=== PATIENT | male | born 1940 | race Caucasian/White ===

== ENCOUNTER 2017-10-13 08:37 | Outpatient (CLI) | payer BC ==
[2017-10-13 09:12] LABS: HEMATOCRIT 41.8 % (39.0-53.0); HEMOGLOBIN 14.3 g/dL (13.0-17.5); MEAN CORPUSCULAR HEMOGLOBIN 31 pg (25-35); MEAN CORPUSCULAR HGB CONC 34 g/dL (31-37); MEAN CORPUSCULAR VOLUME 91 fL (79-100); PLATELET COUNT 228 x10^3/uL (140-400); RED BLOOD COUNT 4.59 x10^6/uL (4.30-5.70); RED CELL DISTRIBUTION WIDTH 13.2 % (11.5-14.5); WHITE BLOOD COUNT 7.6 x10^3/uL (4.0-11.0)
[2017-10-13 09:18] LABS: PROTHROMBIN TIME PATIENT 12.7 SEC (11.7-14.0)
[2017-10-13 09:23] LABS: ANION GAP 10 (6-14); BLOOD UREA NITROGEN 31 mg/dL (8-26); CALCIUM 9.6 mg/dL (8.5-10.1); CARBON DIOXIDE 25 mmol/L (21-32); CHLORIDE 101 mmol/L (98-107); CREATININE 1.1 mg/dL (0.7-1.3); GFR 65.1; GLUCOSE 166 mg/dL (70-99); POTASSIUM 4.4 mmol/L (3.5-5.1); SODIUM 136 mmol/L (136-145)
[2017-10-13] MEDS ORDERED: LIDOCAINE 2% 20 ML VIAL. (09:57)
[2017-10-13] MEDS ORDERED: IOHEXOL 300 MG/ML 100ML VIAL. (09:57)
[2017-10-13] MEDS ORDERED: MIDAZOLAM HCL/PF 2 MG/2 ML VIAL. (11:36)
[2017-10-13] MEDS ORDERED: HEPARIN for IV BOLUS 10,000 UNIT/10 ML VIAL. (11:36)
[2017-10-13] MEDS ORDERED: fentaNYL PF VIAL 100 MCG/2 ML VIAL (11:36)
[2017-10-13] MEDS ORDERED: VERAPAMIL 5 MG/2 ML VIAL. (11:36)
[2017-10-13] MEDS ORDERED: NITROGLYCERIN 200 MCG/2 ML SYRINGE FOR CATH/VASC LAB. (11:36)
[2017-10-13] MEDS: NITROGLYCERIN 200 MCG/2 ML SYRINGE FOR CATH/VASC LAB. IART (12:24)
[2017-10-13] MEDS: IODIXANOL 320 MG/ML 100 ML VIAL. IART (12:24)
[2017-10-13] MEDS: LIDOCAINE 2% 20 ML VIAL. IJ (12:24)
[2017-10-13] MEDS: fentaNYL PF VIAL 100 MCG/2 ML VIAL IV (12:25)
[2017-10-13] MEDS: MIDAZOLAM HCL/PF 2 MG/2 ML VIAL. IV (12:25)
[2017-10-13] MEDS: VERAPAMIL 5 MG/2 ML VIAL. IART (12:25)
[2017-10-13] MEDS: HEPARIN for IV BOLUS 10,000 UNIT/10 ML VIAL. IART (12:26)
[2017-10-13] MEDS ORDERED: IV 1/2 NORMAL SALINE 1,000 ML IV (13:06)
[2017-10-13] MEDS ORDERED: NITROGLYCERIN SUBLINGUAL 0.4 MG BOTTLE OF 25. SL (13:15)
== END 2017-10-13 14:45 | disposition home or self-care (01) ==
LOC: CCL 08:37
DX: I25.119 Atherosclerotic heart disease of native coronary artery with unspecified angina pectoris (principal); I25.82 Chronic total occlusion of coronary artery; E11.22 Type 2 diabetes mellitus with diabetic chronic kidney disease; I13.10 Hypertensive heart and chronic kidney disease without heart failure, with stage 1 through stage 4 chronic kidney disease, or unspecified chronic kidney disease; N18.3 Chronic kidney disease, stage 3 (moderate); I44.1 Atrioventricular block, second degree; F41.9 Anxiety disorder, unspecified; E03.9 Hypothyroidism, unspecified; E78.00 Pure hypercholesterolemia, unspecified; F17.210 Nicotine dependence, cigarettes, uncomplicated; M19.90 Unspecified osteoarthritis, unspecified site; E66.9 Obesity, unspecified; Z68.35 Body mass index [BMI] 35.0-35.9, adult; Z90.49 Acquired absence of other specified parts of digestive tract; Z79.82 Long term (current) use of aspirin; Z79.01 Long term (current) use of anticoagulants; Z79.899 Other long term (current) drug therapy; Z87.891 Personal history of nicotine dependence
CPT/HCPCS: 36415; 80048; 85027; 85610; 93458; 99152; 99153; C1892; J1644; J2001; J2250; J3010; J3490

== ENCOUNTER → 2018-11-16 | Outpatient (CLI) | payer BC ==
[2017-10-13 14:12] VITALS: BP 145/85
[~2018-11-16] MED LIST: AMLO10TA8 PO; ASPI-630 PO; ATORVASTATIN CA80 MG PO; CHOL10003 PO; GLIM4TAB2 PO; INSU100I13 SQ; LEVO75TA5 PO; LISI-334 PO; METF500T16 PO; NIAC500T PO; OMEG1CAP6 PO; PRAV80TA2 PO; SITA100T PO
--- NOTE | 2018-11-16 11:49 | CARD ---
MR#: [id number] Date of Study: 11/16/2018 Ordering Physician: DEMI HERBERT, Referring Physician: DEMI HERBERT Tech: Shanice Cunningham RDCS APPROVED REPORT EXAM: Two-dimensional and M-mode echocardiogram with Doppler and color Doppler. Other Information Quality : AverageHR: 79bpm Rhythm : Pacemaker INDICATION CAD 2D DIMENSIONS RVDd4.1 (2.9-3.5cm)Left Atrium(2D)3.1 (1.6-4.0cm) IVSd1.3 (0.7-1.1cm)Aortic Root(2D)2.9 (2.0-3.7cm) LVDd3.6 (3.9-5.9cm)LVOT Diameter2.1 (1.8-2.4cm) PWd1.1 (0.7-1.1cm)LVDs2.0 (2.5-4.0cm) FS (%) 44.6 %SV41.7 ml LVEF(%)76.7 (>50%) M-Mode DIMENSIONS Left Atrium(MM)4.02 (2.5-4.0cm)Aortic Root3.17 (2.2-3.7cm) Aortic Valve AoV Peak Osbaldo.159.2cm/sAoV VTI38.7cm AO Peak GR.10.1mmHgLVOT Peak Osbaldo.85.0cm/s AO Mean GR.6mmHgAVA (VMAX)1.79cm2 SUPA (VTI)1.94hz0AP P 1/2 Rczl368to Mitral Valve MV E Qyloodvl92.9cm/sMV DECEL VUYR050am MV A Hnipqdka996.9cm/sE/A Ratio0.6 Pulmonary Valve PV Peak Jrqlmqrz838.0cm/s Tricuspid Valve TR P. Qhubgulw822uf/sRAP ARYKSZUB4bgFo TR Peak Gr.49kwNrWRXD35ufFe LEFT VENTRICLE The left ventricle is normal size. There is mild concentric left ventricular hypertrophy. The left ve ntricular systolic function is normal. The Ejection Fraction is 65%. Apical motion consistent with pa cemaker activation. Transmitral Doppler flow pattern is Grade I-abnormal relaxation pattern. RIGHT VENTRICLE The right ventricle is mildly dilated. There is normal right ventricular wall thickness. The right ve ntricular systolic function is normal. Pacer lead noted in RV/RA. ATRIA The left atrium is mildly dilated. The right atrium size is normal. The interatrial septum is intact with no evidence for an atrial septal defect or patent foramen ovale as noted on 2-D or Doppler imagi ng. AORTIC VALVE The aortic valve is mildly calcified. The aortic valve is trileaflet. Doppler and Color Flow revealed no significant aortic regurgitation. There is no significant aortic valvular stenosis. MITRAL VALVE The mitral valve is calcified but opens well. There is no evidence of mitral valve prolapse. There is no mitral valve stenosis. Doppler and Color-flow revealed mild mitral regurgitation. TRICUSPID VALVE The tricuspid valve is normal in structure and function. Doppler and Color Flow revealed trace tricus pid regurgitation. The PA pressure was estimated at 34 mmHg. There is no tricuspid valve prolapse or vegetation. There is no tricuspid valve stenosis. PULMONIC VALVE The pulmonic valve is not well visualized. GREAT VESSELS The aortic root is normal in size. The ascending aorta is normal in size. The IVC is normal in size a nd collapses >50% with inspiration. PERICARDIAL EFFUSION There is no evidence of significant pericardial effusion. Critical Notification Critical Value: No <Conclusion> The left ventricular systolic function is normal. The Ejection Fraction is 65%. Transmitral Doppler flow pattern is Grade I-abnormal relaxation pattern. Pacer lead noted in RV/RA. Mild mitral regurgitation. Trace tricuspid regurgitation. The PA pressure was estimated at 34 mmHg. There is no evidence of significant pericardial effusion. Signed by : Demi Herbert, Electronically Approved : 11/16/2018 11:49:13
== END | disposition home or self-care (01) ==
LOC: ECHO 07:39
PROVIDERS: ATTEND Internal Medicine Cardiovascular Disease
DX: I08.0 Rheumatic disorders of both mitral and aortic valves (principal); I25.119 Atherosclerotic heart disease of native coronary artery with unspecified angina pectoris
CPT/HCPCS: 93306

== ENCOUNTER → 2019-01-07 | Outpatient (CLI) | payer BC ==
[2017-10-13 14:12] VITALS: BP 145/85
[~2019-01-07] MED LIST changes: +REGADENOSON 0.4 MG/5 ML DISP.SYRIN. IV ONE
--- NOTE | 2019-01-07 10:17 | RAD ---
MR#: [id number] Date of Study: 01/07/2019 Ordering Physician: DEMI RICKETTS, Referring Physician: DEMI RCIKETTS Tech: Miriam Villegas RVT,MALGORZATA APPROVED REPORT Patient Location: OUT-PATIENT Indications Claudication: Leg pain Risk Factors Hypertension Diabetes Smoking VELOCITY AND DOPPLER WAVEFORM ANALYSIS RIGHT cm/secWaveformSeverity LEFT cm/secWaveform Severity pCFA 168.9TriphasicpCFA 177.4Triphasic Prof Fem Art. 100.6BiphasicProf Fem Art. 60.3Biphasic Fem Art Prox. 111.1TriphasicFem Art Prox. 81.7Triphasic Fem Art Mid. 82.9BiphasicFem Art Mid. 95.1Biphasic Fem Art Dist. 100.0BiphasicFem Art Dist. 126.4Triphasic Pop Art(Fossa) 88.2TriphasicPop Art(AK) 75.8Triphasic DIET SUPERVISOR Prox. 51.8BiphasicPTA Prox. 57.3Biphasic DIET SUPERVISOR Dist. 28.5BiphasicPTA Dist. 93.2Biphasic Per Art Dist.92.5BiphasicPer Art Dist.72.0Biphasic MARY Dist. 38.8BiphasicATA Dist. 88.2Biphasic DPA 42TriphasicDPA 74Triphasic Findings Grayscale images of the bilateral lower extremity arterial vessels reveal mild diffuse plaque. Spectral waveforms and color Doppler in the common femoral, superficial femoral, popliteal vessels bi laterally are within normal limits. Below the knee there is likely moderate diffuse disease involving the distal posterior tibial and anterior tibial vessels on the right. Otherwise there is robust thre e-vessel runoff on the left. Critical Notification Critical Value: No <Conclusion> 1. No significant high-grade flow-limiting stenosis is identified above the knee. Probable moderate d isease involving the right below-knee vessels but no significant disease in the left below-knee vesse ls Signed by : Peter Pacheco, Electronically Approved : 01/07/2019 10:17:23
--- NOTE | 2019-01-07 11:51 | RAD ---
MR#: [id number] Date of Study: 01/07/2019 Ordering Physician: DEMI RICKETTS Referring Physician: GEETHA JIMENEZ Tech: RT Ramu Benjamin) (N) APPROVED REPORT Test Type: Pharmacological Stress Nurse/Tech: RT Cassidy (R) (N) Test Indications: Dyspnea on exertion Cardiac History: Hypertension, Diabetes, Pacemaker, former smoker Medications: See Electronic Medical Record Medical History: See Electronic Medical Record Resting ECG: AV Paced Resting Heart Rate: 76 bpm Resting Blood Pressure: 144/73mmHg Pretest Chest Pain: No chest pain Nurse/Tech Notes S1,S2 and lungs clear to auscultation. Room air oxygen sats=98% Consent: The procedure was explained to the patient in lay terms. Informed consent was witnessed. Satish eout was entered into [employer]. History and Stress Test performed by RT Cassidy (R) (N) Pharm. Details Pharmacologic stress testing was performed using 0.4mg per 5ml of regadenoson given intravenously ove r 7-10 seconds. Stress Symptoms No chest pain or symptoms. POST EXERCISE Reason for Termination: Infusion complete Target HR: Yes Max HR: 148 bpm Max Blood Pressure: 143/50mmHg Blood Pressure response to exercise: Normal blood pressure response during stress. Heart Rate response to exercise: WNL Chest Pain: No. Arrhythmia: No. ST Change: No. INTERPRETATION Stress EKG Conclusion: Non-diagnostic due to pacing artifact. Imaging Protocol IMAGE PROTOCOL: Rest Tc-99m/stress Tc-99m 1 day Rest: Stress: Viability: Radiopharm.Tc99m FrfjdsffeYh67h Sestamibi Dose10.6mCi 33mCi Duration 13min. 13min. Img Date 01/07/2019 01/07/2019 Inj-Img Djxt94ykj. 60min. Rest Admin Site:IV - Right HandAdministrator:RT Ramu Hobson)(N) Stress Admin Site: IV - Right HandAdministrator: EBONIE Fernandez STRESS DATA End Diast. Vol.115.0mlLVEDV index BSA55.0ml End Syst. Vol.54.0mlLVESV index BSA26.0ml Myocardial Xxfl258.0gEject. Gdmqoziu05.0% Stress Scores Regional WT1.00Summed WT29.00 Regional WM0.00Summed WM11.00 LV Perfusion There is a large size basal to distal inferior, basal inferoseptal and basal inferolateral essentiall y fixed defect which actually appears worse on rest images that on stress images. This may be related to partial redistribution artifact versus pacing artifact. Based on near normal LV function suspect this is artifactual in nature but cannot rule out prior infarct. LV Perf. Quant 17 Seg. SSS8.00 17 Seg. SRS14.00 17 Seg. SDS0.00 Stress Defect Extent (% LAD)17.50Rest Defect Extent (% LAD)33.80Rev. Defect Extent (% LAD)0.00 Stress Defect Extent (% LCX) 0.00Rest Defect Extent (% LCX)10.00Rev. Defect Extent (% LCX)0.00 Stress Defect Extent (% RCA)25.60Rest Defect Extent (% RCA)50.00Rev. Defect Extent (% RCA)0.00 Stress Defect Extent (% KALEIGH)17.80Rest Defect Extent (% KALEIGH)36.50Rev. Defect Extent (% KALEIGH)0.00 Other Information Quality:Fair Risk Assessment: Low-Moderate Risk Conclusion 1. Nondiagnostic EKG due to pacing artifact 2. Moderate to large sized fixed inferior wall defect, actually worse on rest images suggestive of ar tifact versus rest redistribution 3. Mild LV dysfunction, EF 53% 4. Low to moderate risk study. Signed by : Peter Pacheco, Electronically Approved : 01/07/2019 11:51:11
== END | disposition home or self-care (01) ==
LOC: NM 10:34
PROVIDERS: ATTEND Internal Medicine Cardiovascular Disease
DX: I25.119 Atherosclerotic heart disease of native coronary artery with unspecified angina pectoris (principal); I70.203 Unspecified atherosclerosis of native arteries of extremities, bilateral legs; I10 Essential (primary) hypertension; E11.9 Type 2 diabetes mellitus without complications; Z87.891 Personal history of nicotine dependence; Z95.0 Presence of cardiac pacemaker
CPT/HCPCS: 78452; 93017; 93925; A9500; J2785

== ENCOUNTER → 2019-12-21 | Outpatient (CLI) | payer BC ==
[2017-10-13 14:12] VITALS: BP 145/85
[~2019-12-21] MED LIST changes: -GLIM4TAB2 PO; +GLIM4TAB8 PO; +INSU300I SQ; +LISI-130 PO; +NITR0.4T22 SL; -REGADENOSON 0.4 MG/5 ML DISP.SYRIN. IV ONE; +TAMS0.4C97 PO
--- NOTE | 2019-12-21 14:19 | CARD ---
MR#: [id number] Date of Study: 12/21/2019 Ordering Physician: DEMI RICKETTS, Referring Physician: DEMI RICKETTS Tech: Marizol Blanc RDCS APPROVED REPORT EXAM: Two-dimensional and M-mode echocardiogram with Doppler and color Doppler. Other Information Quality : Good INDICATION Cardiac Disease: CAD PM/DEFIBRILLATOR 2D DIMENSIONS RVDd4.0 (2.9-3.5cm)Left Atrium(2D)3.0 (1.6-4.0cm) IVSd1.1 (0.7-1.1cm)Aortic Root(2D)3.0 (2.0-3.7cm) LVDd4.7 (3.9-5.9cm)LVOT Diameter2.3 (1.8-2.4cm) PWd1.1 (0.7-1.1cm)LVDs3.5 (2.5-4.0cm) FS (%) 30.0 %SV49.5 ml Aortic Valve AoV Peak Osbaldo.137.8cm/sAoV VTI24.2cm AO Peak GR.7.6mmHgLVOT Peak Osbaldo.106.7cm/s AO Mean GR.5mmHgAVA (VMAX)3.12cm2 SUPA (VTI)3.17qk6PO P 1/2 Oqul883zl Mitral Valve MV E Gwpvozhx42.2cm/sMV DECEL UJQE510th MV A Vlnsbyvd098.3cm/sE/A Ratio0.6 Tricuspid Valve TR P. Yefzfhtt456ra/sRAP WEIVQHDD4ymHl TR Peak Gr.57frMpKRAG94mdRm Pulmonary Vein S1 Yphflpuv75.6cm/sD2 Hlhoyyrl74.4cm/s LEFT VENTRICLE The left ventricle is normal size. There is normal left ventricular wall thickness. The left ventricu lar systolic function is low normal. The Ejection Fraction is estimated at 50%. Apical motion consist ent with pacemaker activation. Transmitral Doppler flow pattern is Grade I-abnormal relaxation patter n. RIGHT VENTRICLE The right ventricle is normal size. The right ventricular systolic function is normal. There are adam ce leads in the right ventricle and atrium. ATRIA The left atrium size is normal. The right atrium size is normal. The interatrial septum is intact wit h no evidence for an atrial septal defect or patent foramen ovale as noted on 2-D or Doppler imaging. AORTIC VALVE The aortic valve is calcified but opens well. Doppler and Color Flow revealed mild aortic regurgitati on. There is no significant aortic valvular stenosis. MITRAL VALVE The mitral valve is normal in structure and function. There is no evidence of mitral valve prolapse. There is no mitral valve stenosis. Doppler and Color-flow revealed trace mitral regurgitation. TRICUSPID VALVE The tricuspid valve is normal in structure and function. Doppler and Color Flow revealed trace tricus pid regurgitation. The PA pressure was estimated at 28 mmHg. There is no tricuspid valve stenosis. PULMONIC VALVE The pulmonary valve is normal in structure and function. Doppler and Color Flow revealed mild pulmoni c valvular regurgitation. There is no pulmonic valvular stenosis. GREAT VESSELS The aortic root is normal in size. The ascending aorta is mildly dilated t 3.5 cm. The IVC is normal in size and collapses >50% with inspiration. PERICARDIAL EFFUSION There is no evidence of significant pericardial effusion. Critical Notification Critical Value: No <Conclusion> The left ventricle is normal size. The left ventricular systolic function is low normal. The Ejection Fraction is estimated at 50%. Apical motion consistent with pacemaker activation. There are device leads in the right ventricle and atrium. Doppler and Color Flow revealed mild aortic regurgitation. There is no significant aortic valvular stenosis. Doppler and Color-flow revealed trace mitral regurgitation. Doppler and Color Flow revealed trace tricuspid regurgitation. The PA pressure was estimated at 28 mmHg. The ascending aorta is mildly dilated t 3.5 cm. Signed by : Spike Knott MD Electronically Approved : 12/21/2019 14:19:07
== END | disposition home or self-care (01) ==
LOC: ECHO 07:37
PROVIDERS: ATTEND Internal Medicine Cardiovascular Disease
DX: I08.8 Other rheumatic multiple valve diseases (principal); I25.119 Atherosclerotic heart disease of native coronary artery with unspecified angina pectoris; Z95.0 Presence of cardiac pacemaker
CPT/HCPCS: 93306

== ENCOUNTER → 2019-12-29 | Outpatient (CLI) | payer BC ==
[2017-10-13 14:12] VITALS: BP 145/85
[~2019-12-29] MED LIST changes: -INSU300I SQ; -LISI-130 PO; -NITR0.4T22 SL; -TAMS0.4C97 PO
== END ==
LOC: LAB 13:56
PROVIDERS: ATTEND Internal Medicine Cardiovascular Disease
DX: Z20.828 Contact with and (suspected) exposure to other viral communicable diseases (principal)
CPT/HCPCS: U0003-CS

== ENCOUNTER 2020-01-03 06:47 | Outpatient (CLI) | payer BC ==
[2020-01-03] VITALS (10 sets, daily range): BP systolic 114–151; BP diastolic 60–75
[~2020-01-03] VITALS: Ht 170.2 cm; Wt 97.5 kg
[2020-01-03] MEDS ORDERED: INSU300I SQ (07:27)
[2020-01-03] MEDS ORDERED: GLIM4TAB8 PO (07:27)
[2020-01-03] MEDS ORDERED: LISI-130 PO (07:27)
[2020-01-03 07:29] LABS: HEMATOCRIT 41.1 % (39.0-53.0); HEMOGLOBIN 13.9 g/dL (13.0-17.5); RED BLOOD COUNT 4.46 x10^6/uL (4.30-5.70); RED CELL DISTRIBUTION WIDTH 13.5 % (11.5-14.5); WHITE BLOOD COUNT 7.8 x10^3/uL (4.0-11.0)
[2020-01-03] MEDS ORDERED: IODIXANOL 320 MG/ML 100 ML VIAL. ONE ×2 (07:38→09:26)
[2020-01-03] MEDS ORDERED: LIDOCAINE 1% Multi-Dose 20 ML VIAL. ONE (07:39)
[2020-01-03 07:41] LABS: CALCIUM 9.4 mg/dL (8.5-10.1); CREATININE 1.1 mg/dL (0.7-1.3); GFR 64.7; POTASSIUM 4.4 mmol/L (3.5-5.1)
[2020-01-03 07:43] LABS: PROTHROMBIN TIME PATIENT 12.6 SEC (11.7-14.0)
[2020-01-03] MEDS ORDERED: fentaNYL PF VIAL 100 MCG/2 ML VIAL ONE (08:05)
[2020-01-03] MEDS ORDERED: MIDAZOLAM HCL/PF 2 MG/2 ML VIAL. ONE ×2 (08:05→09:02)
[2020-01-03] MEDS ORDERED: TAMS0.4C97 PO (08:09)
[2020-01-03] MEDS ORDERED: fentaNYL PF VIAL 100 MCG/2 ML VIAL IV ONE (08:15)
[2020-01-03] MEDS ORDERED: IODIXANOL 320 MG/ML 100 ML VIAL. IART ONE (08:15)
[2020-01-03] MEDS ORDERED: LIDOCAINE 1% Multi-Dose 20 ML VIAL. INJ ONE (08:15)
[2020-01-03] MEDS ORDERED: MIDAZOLAM HCL/PF 2 MG/2 ML VIAL. IV ONE (08:15)
[2020-01-03] MEDS ORDERED: HEPARIN for IV BOLUS 10,000 UNIT/10 ML VIAL. ONE (09:21)
[2020-01-03] MEDS ORDERED: HEPARIN for IV BOLUS 10,000 UNIT/10 ML VIAL. IV ONE (09:30)
[2020-01-03] MEDS ORDERED: IV 1/2 NORMAL SALINE 1,000 ML IV SCH (10:00)
--- NOTE | 2020-01-03 10:00 | PDOC ---
MODERATE SEDATION ASSESSMENT RISKS/ALTERNATIVES Risks/Alternatives Risks and alternatives of this type of sedation and procedure discussed with: RISK/ALTERNATIVES: Patient H & P ON CHART H & P H & P on chart and reviewed for co-morbid conditions and appropriate labs. H&P ON CHART: Yes STATUS PREG STATUS ASSESSED: N/A MEDS/ALLERGIES REVIEWED Meds/Allergies Reviewed Medications and Allergies including time and route of recently administered narcotics and sedatives. MEDS/ALLERGIES REVIEWED: Yes ASA RATING ASA RATING: II AIRWAY ASSESSMENT Airway Assessment Airway patency, oral function limitations, presence of caps, crowns, dentures, partials, and ability to extend neck assessed. AIRWAY ASSESSMENT: Yes MALLAMPATI SCORE MALLAMPATI SCORE: II PRE-SEDATION ASSESSMENT PRE-SEDATION ASSESSMENT: Yes DEMI RICKETTS MD Jan 03, 2020 10:00
[2020-01-03] MEDS ORDERED: NITR0.4T22 SL (11:57)
--- NOTE | 2020-01-03 12:14 | CARD ---
MR#: [id number] Date of Study: 01/03/2020 Ordering Physician: DEMI RICKETTS, Referring Physician: DEMI RICKETTS Tech: MARK ROBERTSON RTR APPROVED REPORT Technologist: MARK ROBERTSON RTR Nurse: SHELLEY DAY RN Procedure(s) performed: 1. Right and left heart catheterization, selective coronary angiography and left ventriculography 2. Coronary intravascular ultrasound (IVUS) of left main coronary artery stenosis MODERATE SEDATION TIME: 90 minutes FLUORO TIME: 14.2 MIN DOSE: 113 GYCM2 CONTRAST: 185CC VISI INDICATION The indication(s) include : unstable angina . CSHA Clinical Frailty Scale CS Clinical Frailty Scale: Mildly Frail Heart Failure Heart Failure: No PROCEDURE NARRATIVE After explaining the risks, benefits and alternative options, informed consent was obtained for patie nt. Patient was brought to the cardiac Human Resource Manager and his right groin was prepped and draped in the us ual fashion. 20 cc of 2% lidocaine was infiltrated into the skin and subcutaneous tissues for local anesthesia. Arterial and venous accesses were obtained in the right common femoral artery and vein r espectively and 6 and 5 Indonesian sheaths inserted. A 5 Indonesian Naoma-Arianna catheter was then advanced und er fluoroscopy guidance and intracardiac pressures and oxygen saturations measured. Cardiac output w as determined by Shan method. Subsequently, 6 Indonesian JL4 6 Indonesian JR4 catheters were used to perform selective angiography of the left and right coronary arteries. 6 Indonesian pigtail catheter was used t o perform left ventriculography. Since patient had angiographically borderline significant stenosis involving the left main coronary artery, we decided to evaluate this further with coronary intravascu lar ultrasound. The left main coronary artery was engaged with a 6 Indonesian JL4 guide catheter and a 0 .014 inch Handango pro-water guidewire was advanced into the left circumflex artery. A IZI-collecte coronary intravascular ultrasound was positioned in the left circumflex artery and pulled back gradually whil e performing coronary intravascular ultrasound. Patient tolerated the procedure well. Hemostasis wa s achieved using manual compression due to high bifurcation. There were no immediate complications. FINDINGS A. RIGHT HEART CATHETERIZATION 1. Intracardiac pressures: Mean right atrial pressure 12 mmHg, right ventricular pressure 35/12 mmHg , pulmonary artery pressure 34/16 mmHg with mean PA pressure 23 mmHg and mean pulmonary capillary wed ge pressure 14 mmHg. This is consistent with mildly elevated right-sided filling pressures. No sign ificant pulmonary hypertension was noted. 2. Oxygen saturations: Right atrium 65.6%, pulmonary artery 66.5%, femoral arterial sheath 98.9%. N o evidence of intracardiac shunt. 3. Cardiac output by Shan method 3.84 L/min. B. LEFT HEART CATHETERIZATION 1. Hemodynamics: Left ventricular end-diastolic pressure 25 mmHg. No pullback gradient across the a ortic valve. 2. Left ventriculography: Normal left ventricular systolic function with ejection fraction estimated at 50 to 55%. No significant mitral regurgitation seen. 3. Coronary angiography: a. The left main coronary artery arose from the left sinus of Valsalva, gave rise to the left anteri or descending and left circumflex arteries and showed 60% stenosis involving the ostium of the left m ain coronary artery angiographically. This was found to be 71% on coronary intravascular ultrasound. b. The left anterior descending artery showed 50% stenosis in the proximal segment. c. The left circumflex artery was a large and dominant vessel that showed 30% stenosis in the proxim al segment. d. The right coronary artery was a nondominant vessel arising from the right sinus of Valsalva that showed chronic total occlusion in the proximal to mid segment with faint distal reconstitution from l eft to right collaterals. This was described in prior cardiac catheterization. Conclusion 1. Left dominant system with significant left main coronary artery stenosis, 60% ostial stenosis ang iographically and 71% stenosis on IVUS. 2. Normal left ventricle systolic function with ejection fraction estimated at 50 to 55%. 3. No significant pulmonary hypertension. 4. No evidence of intracardiac shunt. Recommendations Cardiothoracic surgery referral for possible coronary bypass surgery. Signed by : Demi Ricketts, Electronically Approved : 01/03/2020 12:14:44
--- NOTE | 2020-01-03 13:59 | NUR ---
pt A&O x3. rt groin site is clean and dry. discussed and reviewed pictures of coronary arteries and where he has blockage and why that is significant. tolerating po well. ambulated to Br w/o problem. VSS. d/c instructions given, reminder to hold metformin for 48 hours and questions answered. out to vehicle per w/c. to drive pt home.
== END 2020-01-03 13:45 | disposition home or self-care (01) ==
LOC: CCL 06:47
PROVIDERS: ATTEND Internal Medicine Cardiovascular Disease
DX: I25.110 Atherosclerotic heart disease of native coronary artery with unstable angina pectoris (principal); Z87.891 Personal history of nicotine dependence; Z72.89 Other problems related to lifestyle; Z79.899 Other long term (current) drug therapy
CPT/HCPCS: 36415; 80048; 85027; 85610; 92978; 92979; 93460; 99152; 99153; C1753; C1769; C1887; C1892; J1644; J2250; J3010; J3490; Q9967; 37252

== ENCOUNTER → 2020-01-23 | Outpatient (CLI) | payer BC ==
[2020-01-03 13:20] VITALS: BP 140/71
[~2020-01-23] MED LIST changes: +INSU300I SQ; +LISI-130 PO; +NITR0.4T22 SL; +TAMS0.4C97 PO
--- NOTE | 2020-01-23 12:20 | RAD ---
MR#: [id number] Date of Study: 01/23/2020 Ordering Physician: DEMI RICKETTS, Referring Physician: DEMI RICKETTS, Tech: Davidson Ramirez MBA, RDMS, RVT, RDCS, RTR APPROVED REPORT Patient Location: OUT-PATIENT Laterality:Bilateral Indications PRE-OP CABG Doppler Spectral Velocity Analysis Right Left pCCA 111/13 cm/spCCA 156/20 cm/s mCCA 95/18 cm/smCCA 90/15 cm/s dCCA 85/16 cm/sdCCA 101/19 cm/s Bulb 70/12 cm/sBulb 79/14 cm/s ECA 190/ cm/sECA 113/ cm/s pICA 83/20 cm/spICA 94/18 cm/s Meg 76/20 cm/smICA 68/16 cm/s dICA 76/21 cm/sdICA 69/20 cm/s Vert. 43/ cm/sVert. 44/ cm/s Subcl. 121/ cm/sSubcl. 177/ cm/s ICA/CCA 0.75ICA/CCA 0.60 Findings Grayscale images of the bilateral carotid vessels demonstrates mild to moderate atherosclerosis. No focal high-grade obstruction based on velocity criteria is evident in the bilateral internal carotid vessels. Normal ICA to CCA ratios bilaterally. Critical Notification Critical Value: No <Conclusion> 1. No significant carotid occlusive disease bilaterally Signed by : Peter Pacheco, Electronically Approved : 01/23/2020 12:20:06
--- NOTE | 2020-01-23 12:22 | RAD ---
MR#: [id number] Date of Study: 01/23/2020 Ordering Physician: DEMI RICKETTS, Referring Physician: DEMI RICKETTS, Tech: Davidson Ramirez MBA, RDMS, RVT, RDCS, RTR APPROVED REPORT Patient Location: OUT-PATIENT Indications PRE-OP CABG Vein Measurements Great Saphenous Small Saphenous RightLeft RightLeft Saph-Fem. Junction 4.70mm4.70mmProximal 3.70mm2.50mm Mid Thigh 3.70mm3.70mmMid 3.00mm2.60mm Distal Thigh 3.00mm3.40mmDistal 3.40mm2.90mm Proximal Calf 2.90mm3.40mm Mid Calf 3.10mm3.60mm Distal Calf 3.50mm3.00mm Findings Patent bilateral greater and lesser saphenous veins with dimensions as noted above which appear to be adequate for bypass conduit. Critical Notification Critical Value: No <Conclusion> 1. Patent bilateral greater and lesser saphenous veins. Signed by : Peter Pacheco, Electronically Approved : 01/23/2020 12:22:23
== END | disposition home or self-care (01) ==
LOC: US 10:55
PROVIDERS: ATTEND Internal Medicine Cardiovascular Disease
DX: I65.23 Occlusion and stenosis of bilateral carotid arteries (principal); I25.119 Atherosclerotic heart disease of native coronary artery with unspecified angina pectoris
CPT/HCPCS: 93880; 93970

== ENCOUNTER → 2020-03-20 | Outpatient (CLI) | payer BC ==
[2020-01-03 13:20] VITALS: BP 140/71
[~2020-03-20] MED LIST changes: +AMLO-187 PO; -AMLO10TA8 PO
--- NOTE | 2020-03-20 16:30 | RAD ---
CHEST PA LATERAL INDICATION: PACEMAKER LEAD MALFUNCTION COMPARISON STUDY: 07/03/2017. FINDINGS: Life Support Devices: Left pectoral transvenous dual-chamber pacemaker with leads overlying the right atrium and right ventricle. Both leads appear intact. Right atrial lead is oriented with tip pointed toward the left lateral ventricle. On comparison chest radiograph of 07/03/2017, the tip of the right atrial lead is oriented cranially. Right ventricular lead is similar in configuration to the prior exam. Lungs: Normal lung volume. No pulmonary mass or consolidation. The tracheobronchial tree and hilar structures are normal. Pleura: No pleural effusion or pneumothorax. Heart and Mediastinum: Normal cardiac size. Mild tortuosity of the thoracic aorta. Bones and Soft Tissues: Degenerative changes of the spine. Median sternotomy. IMPRESSION: Left pectoral pacemaker with no convincing break of either lead. When compared to the exam of 07/03/2017, the tip of the right atrial lead has changed position. If there has been no interval lead replacement, this lead may have become malpositioned. Correlate with patient's history. Electronically signed by: Rhett Lenz MD (03/20/2020 4:27 PM) [id number]
== END ==
LOC: RAD 14:25
PROVIDERS: ATTEND Internal Medicine Cardiovascular Disease
DX: Q25.46 Tortuous aortic arch (principal); T82.110A Breakdown (mechanical) of cardiac electrode, initial encounter; Z95.0 Presence of cardiac pacemaker
CPT/HCPCS: 71046

== ENCOUNTER → 2020-04-03 | Outpatient (CLI) | payer BC ==
[2020-01-03 13:20] VITALS: BP 140/71
== END ==
LOC: LAB 13:31
PROVIDERS: ATTEND Internal Medicine Cardiovascular Disease
DX: Z01.812 Encounter for preprocedural laboratory examination (principal); Z20.828 Contact with and (suspected) exposure to other viral communicable diseases
CPT/HCPCS: U0003

== ENCOUNTER 2020-04-06 06:41 | Observation (INO) | payer BC ==
[~2020-04-06] VITALS: Ht 170.2 cm; Wt 97.4 kg
[2020-04-06 07:42] LABS: HEMATOCRIT 40.9 % (39.0-53.0); HEMOGLOBIN 13.4 g/dL (13.0-17.5); RED BLOOD COUNT 4.43 x10^6/uL (4.30-5.70); RED CELL DISTRIBUTION WIDTH 14.9 % (11.5-14.5); WHITE BLOOD COUNT 7.5 x10^3/uL (4.0-11.0)
[2020-04-06 07:52] VITALS: BP 123/67
[2020-04-06 07:53] LABS: PROTHROMBIN TIME PATIENT 13.5 SEC (11.7-14.0)
[2020-04-06 07:59] LABS: CALCIUM 9.7 mg/dL (8.5-10.1); CREATININE 1.3 mg/dL (0.7-1.3); GFR 53.4; POTASSIUM 4.8 mmol/L (3.5-5.1)
[2020-04-06] MEDS ORDERED: LIDOCAINE 2%/EPI 1:100,000 20 ML VIAL. ONE (08:23)
[2020-04-06] MEDS ORDERED: IODIXANOL 320 MG/ML 100 ML VIAL. ONE (08:23)
[2020-04-06] MEDS ORDERED: MIDAZOLAM HCL/PF 5 MG/5 ML VIAL. ONE (08:36)
[2020-04-06] MEDS ORDERED: fentaNYL PF VIAL 100 MCG/2 ML VIAL ONE (08:36)
--- NOTE | 2020-04-06 08:51 | PDOC ---
MODERATE SEDATION ASSESSMENT RISKS/ALTERNATIVES Risks/Alternatives Risks and alternatives of this type of sedation and procedure discussed with: RISK/ALTERNATIVES: Patient H & P ON CHART H & P H & P on chart and reviewed for co-morbid conditions and appropriate labs. H&P ON CHART: Yes STATUS PREG STATUS ASSESSED: N/A MEDS/ALLERGIES REVIEWED Meds/Allergies Reviewed Medications and Allergies including time and route of recently administered narcotics and sedatives. MEDS/ALLERGIES REVIEWED: Yes ASA RATING ASA RATING: III AIRWAY ASSESSMENT Airway Assessment Airway patency, oral function limitations, presence of caps, crowns, dentures, partials, and ability to extend neck assessed. AIRWAY ASSESSMENT: Yes MALLAMPATI SCORE MALLAMPATI SCORE: II PRE-SEDATION ASSESSMENT PRE-SEDATION ASSESSMENT: Yes DEMI RICKETTS MD Apr 06, 2020 08:51
[2020-04-06] MEDS ORDERED: BACITRACIN 50,000 UNIT in IV NORMAL SALINE 250ML 250 ML IRR ONE (09:00)
[2020-04-06] MEDS ORDERED: IODIXANOL 320 MG/ML 100 ML VIAL. IV ONE (09:45)
[2020-04-06] MEDS ORDERED: LIDOCAINE 2%/EPI 1:100,000 20 ML VIAL. IJ ONE (09:45)
[2020-04-06] MEDS ORDERED: MIDAZOLAM HCL/PF 5 MG/5 ML VIAL. IV ONE (09:45)
[2020-04-06] MEDS ORDERED: fentaNYL PF VIAL 100 MCG/2 ML VIAL IV ONE (09:45)
[2020-04-06 09:55] VITALS: BP 119/52
[2020-04-06 10:15] VITALS: BP 121/58
--- NOTE | 2020-04-06 10:16 | CARD ---
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 The patient was brought to the cardiac catheterization lab and the left chest and shoulder were prepp ed and draped in a sterile manner. Contrast injections were performed through peripheral IV for subclavian venogram to confirm patency o f the vein. 30 cc of 2% lidocaine was infiltrated into the skin and subcutaneous tissues for local a nesthesia. An incision was made over the previous scar and using blunt dissection and cautery, the p ocket was opened, the capsule exposed and opened and the generator removed from the pocket. The righ t atrial lead was freed with blunt dissection and cautery and using a stylet, this was repositioned o n the lateral wall of right atrium under fluoroscopic guidance. The lead was reattached to the gener ator which was then placed in the pocket. This was closed in 3 layers. Hemostasis was secured. The right atrial lead showed a sensing amplitude of 2.1 mV, impedance of 468 ohms and a threshold of 0.4 V. The right ventricular lead showed a sensing amplitude of 7.9 mV, impedance of 507 ohms and a threshold of 0.4 V. Patient tolerated the procedure well. There were no immediate complications. CONCLUSION Successful Biotronik dual-chamber permanent pacemaker right atrial lead revision for pacemaker malfun ction secondary to lead dislodgment. Signed by : Demi Herbert, Electronically Approved : 04/06/2020 10:15:52
[2020-04-06] MEDS ORDERED: NITROGLYCERIN SUBLINGUAL 0.4 MG BOTTLE OF 25. SL PRN (11:45)
[2020-04-06] MEDS ORDERED: TAMSULOSIN 0.4 MG CAP.ER.24H. PO PRN (11:45)
[2020-04-06] MEDS: GLIMEPIRIDE 2 MG TABLET. PO SCH ×2 (12:00→21:22)
[2020-04-06 15:00] VITALS: BP 126/58
[2020-04-06] MEDS: oxyCODONE/APAP 5/325 1 TAB TABLET PO PRN ×2 (15:14→21:23)
[2020-04-06] MEDS: metFORMIN 500 MG TABLET PO SCH (16:16)
[2020-04-06 19:33] VITALS: BP 143/68
[2020-04-06] MEDS ORDERED: INSULIN GLARGINE SYRINGE. SQ SCH (21:00)
[2020-04-06] MEDS ORDERED: GLIMEPIRIDE 2 MG TABLET. ONE (21:00)
[2020-04-06] MEDS ORDERED: ATORVASTATIN CALCIUM 40 MG TABLET. PO SCH (21:00)
[2020-04-06 23:25] VITALS: BP 148/76
[2020-04-07 05:00] VITALS: BP 152/78
[2020-04-07 07:00] VITALS: BP 142/68
[2020-04-07] MEDS: metFORMIN 500 MG TABLET PO SCH (07:00)
[2020-04-07] MEDS ORDERED: LEVOTHYROXINE 75 MCG TABLET PO SCH (07:30)
[2020-04-07] MEDS ORDERED: GLIMEPIRIDE 2 MG TABLET. ONE (08:00)
[2020-04-07] MEDS: GLIMEPIRIDE 2 MG TABLET. PO SCH (08:00)
[2020-04-07] MEDS: oxyCODONE/APAP 5/325 1 TAB TABLET PO PRN (08:01)
--- NOTE | 2020-04-07 08:54 | RAD ---
CHEST PA LATERAL Technique: PA and lateral views of the chest were obtained. Clinical History: Reason: 1 day post pacemaker implantation / Spl. Instructions: / History: Comparison: March 20, 2020 chest x-ray and April 06, 2020 spot views of the pacemaker. Findings: The heart and pulmonary vasculature appear within normal limits. The lungs are clear. The pleural margins are clear. There is mediastinal wires and left-sided pacemaker again seen. The leads are unchanged since April 06, 2020 exam. Impression: Stable appearance the chest. Unchanged position of the leads since the April 06 study. Electronically signed by: Troy Davey III, MD (04/07/2020 8:50 AM) [facility]
[2020-04-07] MEDS ORDERED: LISINOPRIL 20 MG TABLET PO SCH (09:00)
[2020-04-07] MEDS ORDERED: amLODIPine BESYLATE 10 MG TABLET PO SCH (09:00)
[2020-04-07] MEDS ORDERED: ASPIRIN CHEWABLE 81 MG TABLET. PO SCH (09:00)
[2020-04-07] MEDS ORDERED: OMEGA-3 FATTY ACIDS/FISH OIL 1,000 MG CAPSULE. PO SCH (09:00)
[2020-04-07 11:00] VITALS: BP 148/66
--- NOTE | 2020-04-07 12:24 | PDOC3 ---
Discharge Summary Visit Information Date of Admission: Apr 06, 2020 Date of Discharge: Apr 07, 2020 Admitting Diagnosis: Displacement of right atrial pacemaker lead. Final Diagnosis Right atrial pacemaker lead repositioning and monitoring due to a displacement of the lead. Brief Hospital Course Allergies Allergies Coded Allergies Type Severity Reaction Last Updated Verified No Known Drug Allergies 01/03/20 No Vital Signs Vital Signs Date Time Temp Pulse Resp B/P (MAP) Pulse Ox O2 Delivery O2 Flow Rate FiO2 04/07/20 09:01 97 Room Air 04/07/20 08:02 66 142/68 04/07/20 07:00 97.8 18 97.8 04/06/20 09:55 2.0 Lab Results Laboratory Tests Test 04/06/20 07:20 04/06/20 21:19 04/07/20 07:15 White Blood Count 7.5 x10^3/uL (4.0-11.0) Red Blood Count 4.43 x10^6/uL (4.30-5.70) Hemoglobin 13.4 g/dL (13.0-17.5) Hematocrit 40.9 % (39.0-53.0) Mean Corpuscular Volume 92 fL (79-100) Mean Corpuscular Hemoglobin 30 pg (25-35) Mean Corpuscular Hemoglobin Concent 33 g/dL (31-37) Red Cell Distribution Width 14.9 % (11.5-14.5) Platelet Count 218 x10^3/uL (140-400) Prothrombin Time 13.5 SEC (11.7-14.0) Prothromb Time International Ratio 1.1 (0.8-1.1) Sodium Level 139 mmol/L (136-145) Potassium Level 4.8 mmol/L (3.5-5.1) Chloride Level 103 mmol/L (98-107) Carbon Dioxide Level 25 mmol/L (21-32) Anion Gap 11 (6-14) Blood Urea Nitrogen 24 mg/dL (8-26) Creatinine 1.3 mg/dL (0.7-1.3) Estimated GFR (Cockcroft-Gault) 53.4 Glucose Level 156 mg/dL (70-99) Calcium Level 9.7 mg/dL (8.5-10.1) Glucose (Fingerstick) 101 mg/dL (70-99) 85 mg/dL (70-99) Laboratory Tests Test 04/06/20 21:19 04/07/20 07:15 Glucose (Fingerstick) 101 mg/dL (70-99) 85 mg/dL (70-99) Brief Hospital Course The patient is a 79-year-old male who was found to have a displaced right atrial pacemaker lead. He was admitted for repositioning of the lead. This was done without complications on April 06. Post procedure chest x-ray showed normal positioning and no pneumothorax. Recheck of the device lead on April 07 showed normal functioning. The patient remained stable overnight. He was allowed to go home in stable condition on April 07. Follow-up will be in 1 week. Home medications are unchanged with restarting the patient's Metformin on the and restarting his Eliquis on the evening of the . Assessment Assessment Successful repositioning of a displaced right atrial pacemaker lead. Discharge Information Condition at Discharge: Improved Follow Up: Weeks Disposition/Orders: D/C to Home Scheduled Amlodipine Besylate (Amlodipine Besylate) 10 Mg Tablet, 10 MG PO DAILY, (Reported) Entered as Reported by: REGINA HARRY on 01/15/17 1235 Last Taken: Unknown Dose on 04/06/20 Last Action: Continued on 04/06/201136 by Ravinder Domi Aspirin (Aspirin) 81 Mg Tab.chew, 1 TAB PO DAILY, #30 Ref 3 (Reported) Entered as Reported by: REGINA HARRY on 01/15/17 1243 Last Action: Continued on 04/06/201136 by [facility]Health[facility] Atorvastatin Calcium (Atorvastatin Calcium) 80 Mg Tablet, 80 MG PO HS for FOR CHOLESTEROL, #30 Ref 0 (Reported) Entered as Reported by: REGINA HARRY on 01/15/17 1242 Last Action: Converted on 04/06/201136 by [facility]inder[facility]Health[facility] Glimepiride (Glimepiride) 4 Mg Tablet, 1 TAB PO BID for rx, #180 Ref 1 (Reported) Entered as Reported by: KAZ OLIVAS on 01/03/20726 Last Action: Converted on 04/06/201136 by Ravinder Domi Insulin Glargine,Hum.rec.anlog (Tojazmín Solostar) 300 Unit/1 Ml Insuln.pen, 40 UNIT SQ HS for rx, (Reported) Entered as Reported by: KAZ OLIVAS on 01/03/20726 Last Action: Converted on 04/06/201136 by Ravinder Duron Levothyroxine Sodium (Levothyroxine Sodium) 75 Mcg Tablet, 75 MCG PO DAILYAC for THYROID SUPPLEMENT, #30 Ref 0 (Reported) Entered as Reported by: REGINA HARRY on 01/15/17 1241 Last Action: Continued on 04/06/201136 by Ravinder Duron Lisinopril (Lisinopril) 40 Mg Tablet, 1 TAB PO DAILY for rx, #30 Ref 5 (Reported) Entered as Reported by: KAZ OLIVAS on 01/03/20 07 Last Action: Continued on 04/06/201136 by Ravinder Duron Metformin Hcl (Metformin Hcl) 500 Mg Tablet, 500 MG PO BIDWMEALS for ANTI- DIABETIC, Ref 0 (Reported) hold for 48 hours, next dose evening, 01/04 Entered as Reported by: Savannah King on 10/13/17 0849 Last Action: Continued on 04/06/201136 by Ravinder Duron [place]-3 Fatty Acids/Fish Oil (Fish Oil 1,000 Mg Capsule) 1 Each Capsule, 1 EACH PO DAILY, (Reported) Entered as Reported by: REGINA HARRY on 01/15/17 1241 Last Action: Continued on 04/06/201136 by Ravinder Duron Scheduled PRN Nitroglycerin (NITROGLYCERIN SubLingual) 0.4 Mg Tab.subl, 0.4 MG SL PRN Q5MIN PRN for CHEST PAIN, (Reported) Entered as Reported by: VIDYA JACOBSEN on 01/03/20 1157 Last Action: Continued on 04/06/201136 by Ravinder Duron Tamsulosin Hcl (Flomax) 0.4 Mg Cap.er.24h, 1 CAP PO HS PRN for x, #30 Ref 11 (Reported) Entered as Reported by: KAZ OLIVAS on 01/03/20 0809 Last Action: Continued on 04/06/201136 by Ravinder Duron Justicifation of Admission Dx: Justifications for Admission: Justification of Admission Dx: Yes LILIA MERA MD Apr 07, 2020 12:24
== END 2020-04-07 13:35 | disposition home or self-care (01) ==
LOC: CCL 06:41 → 2 NORTH 09:00
PROVIDERS: ADMIT Internal Medicine Cardiovascular Disease; ATTEND Internal Medicine Cardiovascular Disease
DX: T82.120A Displacement of cardiac electrode, initial encounter (principal); I25.10 Atherosclerotic heart disease of native coronary artery without angina pectoris; I48.91 Unspecified atrial fibrillation; I44.1 Atrioventricular block, second degree; E03.9 Hypothyroidism, unspecified; E11.9 Type 2 diabetes mellitus without complications; E78.5 Hyperlipidemia, unspecified; Y71.2 Prosthetic and other implants, materials and accessory cardiovascular devices associated with adverse incidents; J44.9 Chronic obstructive pulmonary disease, unspecified; Z68.32 Body mass index [BMI] 32.0-32.9, adult; Z95.0 Presence of cardiac pacemaker
CPT/HCPCS: 33215; 36415; 71046; 75820; 80048; 82962; 85027; 85610; 96365; 96366; 96368; 96372; 96375; 99152; 99153; G0378; G0379; J0690; J1815; J2250; J3010; J3490; J7050; Q9967; 75710; J7030

== ENCOUNTER → 2020-10-22 | Outpatient (CLI) | payer BC ==
[~2020-10-22] MED LIST changes: -LISI-334 PO; +LISI20TA18 PO
--- NOTE | 2020-10-22 16:58 | KCIC ---
EXAM: Chest, 2 views. HISTORY: Chest wall pain. COMPARISON: 04/07/2020 FINDINGS: 2 views of chest are obtained. There is no infiltrate, pleural effusion or pneumothorax. Th ere is evidence of prior CABG. There is a cardiac pacemaker with leads in expected position. There is bilateral perihilar linear opacity likely due to scarring. IMPRESSION: No acute pulmonary finding. Electronically signed by: Joann Mcfarland MD (10/22/2020 4:56 PM) [id number]
== END ==
LOC: KCIC 13:59
PROVIDERS: ATTEND Family Medicine
DX: R07.89 Other chest pain (principal); Z95.1 Presence of aortocoronary bypass graft; Z95.0 Presence of cardiac pacemaker
CPT/HCPCS: 71046

== ENCOUNTER → 2020-12-05 | Outpatient (CLI) | payer BC ==
--- NOTE | 2020-12-05 16:42 | CARD ---
MR#: [id number] Date of Study: 12/05/2020 Ordering Physician: DEMI RICKETTS, Referring Physician: DEMI RICKETTS, Tech: Cassandra Mcdonald KATIANA APPROVED REPORT EXAM: Two-dimensional and M-mode echocardiogram with Doppler and color Doppler. Other Information Quality : AverageHR: 79bpm Rhythm : Pacemaker INDICATION Dyspnea Atrial Fibrillation Surgery/Intervention Pacemaker: Date: 2018 CABG: Date: 2019 Site: [facility] RISK FACTORS Hypertension Hyperlipidemia Diabetes 2D DIMENSIONS RVDd3.9 (2.9-3.5cm)Left Atrium(2D)3.7 (1.6-4.0cm) IVSd1.5 (0.7-1.1cm)Aortic Root(2D)3.5 (2.0-3.7cm) LVDd4.2 (3.9-5.9cm)LVOT Diameter2.0 (1.8-2.4cm) PWd1.3 (0.7-1.1cm)LVDs3.1 (2.5-4.0cm) FS (%) 25.2 %SV39.3 ml LVEF(%)50.2 (>50%) Aortic Valve AoV Peak Osbaldo.138.0cm/sAoV VTI26.7cm AO Peak GR.7.6mmHgLVOT Peak Osbaldo.77.5cm/s LVOT VTI 16.72cmAO Mean GR.4mmHg SUPA (VMAX)1.61nk7EYW (VTI)2.05cm2 Mitral Valve MV E Lxovswfq30.6cm/sMV DECEL [id number] MV A Lfrsugoq579.3cm/sMV E Mean Gr.2mmHg MV PUX67wcY/A Ratio0.6 MVA (PHT)4.07cm2 TDI E/Lateral E'5.9E/Medial E'10.3 Pulmonary Valve PV Peak Fqwkcean95.5cm/sPV Peak Grad.4mmHg Tricuspid Valve TR P. Szczszti198rw/sRAP YEBJUTGG2ffTr TR Peak Gr.48ctUbUYFN27uhCf Pulmonary Vein S1 Xucxinen44.5cm/sD2 Vyqdrtnt80.8cm/s PVa aakfdimd882mygy LEFT VENTRICLE The left ventricle is normal size. There is mild to moderate concentric left ventricular hypertrophy. The left ventricular systolic function is mildly decreased. EF 40-45% Septal motion consistent with conduction abnormalitie. Mild global hypokinesis. Transmitral Doppler flow pattern is Grade I-abnorma l relaxation pattern. RIGHT VENTRICLE The right ventricle is borderline dilated. There is normal right ventricular wall thickness. The righ t ventricular systolic function is normal. There is a pacemaker lead in the right ventricle. ATRIA The left atrium size is normal. The right atrium size is normal. The interatrial septum is intact wit h no evidence for an atrial septal defect or patent foramen ovale as noted on 2-D or Doppler imaging. AORTIC VALVE The aortic valve is mild to moderate sclerotic. Doppler and Color Flow revealed no significant aortic regurgitation. There is no significant aortic valvular stenosis. Calculated aortic valve area is 1.8 3 cm2 with maximum pressure gradient of 9 mmHg and mean pressure gradient of 5 mmHg. MITRAL VALVE The mitral valve is normal in structure and function. There is no evidence of mitral valve prolapse. There is no mitral valve stenosis. Doppler and Color-flow revealed trace mitral regurgitation. TRICUSPID VALVE The tricuspid valve is normal in structure and function. Doppler and Color Flow revealed trace tricus pid regurgitation with an estimated PAP of 33 mmHg. There is no tricuspid valve stenosis. PULMONIC VALVE Doppler and Color Flow revealed trace pulmonic valvular regurgitation. There is no pulmonic valvular stenosis. GREAT VESSELS The aortic root is normal in size. The IVC is normal in size and collapses >50% with inspiration. PERICARDIAL EFFUSION There is no evidence of significant pericardial effusion. Critical Notification Critical Value: No <Conclusion> The left ventricular systolic function is mildly decreased. EF 40-45% Septal motion consistent with conduction abnormalitie. Mild global hypokinesis. There is a pacemaker lead in the right ventricle. Signed by : Peter Pacheco, Electronically Approved : 12/05/2020 16:42:01
== END ==
LOC: ECHO 10:19
PROVIDERS: ATTEND Internal Medicine Cardiovascular Disease
DX: I35.8 Other nonrheumatic aortic valve disorders (principal); I51.7 Cardiomegaly; I48.91 Unspecified atrial fibrillation
CPT/HCPCS: 93306

== ENCOUNTER → 2021-07-12 | Outpatient (CLI) | payer BC ==
[~2021-07-12] MED LIST changes: +REGADENOSON 0.4 MG/5 ML DISP.SYRIN. IV ONE
--- NOTE | 2021-07-14 17:18 | RAD ---
MR#: [id number] Date of Study: 07/12/2021 Ordering Physician: DEMI RICKETTS, Referring Physician: GEETHA JIMENEZ Tech: RT Debbie BenjaminR) (N) APPROVED REPORT Test Type: Pharmacological Stress Nurse/Tech: Jenn Mcmillan RN Test Indications: fatigue,shortness of air Cardiac History: Diabetes,COPD,pacemaker Medications: See Electronic Medical Record Medical History: See Electronic Medical Record Resting ECG: AV Paced Resting Heart Rate: 67 bpm Resting Blood Pressure: 127/70mmHg Pretest Chest Pain: No chest pain Nurse/Tech Notes S1,S2 and lungs slightly diminished in the bases. Consent: The procedure was explained to the patient in lay terms. Informed consent was witnessed. Satish eout was entered into [employer]. History and Stress Test performed by RT Cassidy (R) (N) Pharm. Details Pharmacologic stress testing was performed using 0.4mg per 5ml of regadenoson given intravenously ove r 7-10 seconds. Stress Symptoms Feels weird. POST EXERCISE Reason for Termination: Infusion complete Target HR: Yes Max HR: 120 bpm 100% of Maximum Predicted HR: 119 bpm Max Blood Pressure: 139/59mmHg Blood Pressure response to exercise: Normal blood pressure response during stress. Heart Rate response to exercise: WNL Chest Pain: Yes. patient stated he had some slight pressure at beginning of study but resolved by end of study Arrhythmia: No. ST Change: No. INTERPRETATION Stress EKG Conclusion: The resting EKG shows AV pacing. The stress EKG remains in AV pacing. Imaging Protocol IMAGE PROTOCOL: Rest Tc-99m/stress Tc-99m 1 day Rest: Stress: Viability: Radiopharm.Tc99m PykyggmkqRf76p Sestamibi Dose10.4mCi 32.5mCi Duration 15min. 10min. Img Date 07/12/2021 07/12/2021 Inj-Img Dnfo50bwj. 60min. Rest Admin Site:IV - Right AntecubitalAdministrator:JUAN Arriaga, ARRT (R)(N) Stress Admin Site: IV - Right AntecubitalAdministrator: Savannah Austin, NMTCB, ARRT (R)(N) STRESS DATA End Diast. Vol.105.0mlAv. Heart Rate69.0bpm End Syst. Vol.28.0mlCO Index BSA0.0L/min Myocardial Vgur509.0gEject. Hxbtibew23.0% Stress Rates Pk. Fill Rate3.04EDV/secLVtime Pk. Fill 187.32msec Pk. Empty Rate3.84ESV/secLVtime Pk. Rxamw410.32msec /3 Pk. Fill1.15EDV/sec Stress Scores Regional WT0.00Summed WT8.00 Regional WM0.00Summed WM2.00 LV Perfusion The rest scans show a mild apical defect. The stress scans show a mild apical defect. Nuclear imaging shows no reversible ischemia. 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 Wall Motion LV systolic function is intact with an ejection fraction of greater than 70%. LV Perf. Quant 17 Seg. SSS12.00 17 Seg. SRS13.00 17 Seg. SDS1.00 Stress Defect Extent (% LAD)28.10Rest Defect Extent (% LAD)30.00Rev. Defect Extent (% LAD)0.00 Stress Defect Extent (% LCX) 15.00Rest Defect Extent (% LCX)0.00Rev. Defect Extent (% LCX)0.00 Stress Defect Extent (% RCA)35.60Rest Defect Extent (% RCA)38.90Rev. Defect Extent (% RCA)0.00 Stress Defect Extent (% KALEIGH)31.30Rest Defect Extent (% KALEIGH)27.80Rev. Defect Extent (% KALEIGH)0.20 Conclusion 1. AV paced rhythm throughout the study. 2. Nuclear imaging shows no reversible ischemia. 3. 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 4. LV ejection fraction is greater than 70%. 5. Moderate to moderately low risk Lexiscan nuclear stress test with no reversible ischemia and intac t LV systolic function. Signed by : Spike Knott MD Electronically Approved : 07/14/2021 17:18:22
== END ==
LOC: NM 08:32
PROVIDERS: ATTEND Internal Medicine Cardiovascular Disease
DX: I25.10 Atherosclerotic heart disease of native coronary artery without angina pectoris (principal)
CPT/HCPCS: 78452; 93017; A9500; J2785

== ENCOUNTER 2021-08-12 09:17 | Emergency (ER) | payer BC ==
[~2021-08-12] VITALS: Ht 170.2 cm; Wt 97.7 kg
[~2021-08-12 09:17] MED LIST changes: -REGADENOSON 0.4 MG/5 ML DISP.SYRIN. IV ONE
[2021-08-12] MEDS ORDERED: LIDOCAINE (700MG/PATCH) PATCH. TD ONE (10:00)
[2021-08-12] MEDS ORDERED: MORPHINE SULFATE 4 MG/ML INJ. IM ONE (10:00)
[2021-08-12] MEDS ORDERED: VALA10005 PO (10:18)
[2021-08-12] MEDS ORDERED: TRAM50TA PO (10:20)
--- NOTE | 2021-08-12 10:32 | RAD ---
Exam: US LEFT LOWER EXTREMITY ARTERIAL DUPLEX EVAL History: Leg pain. Rule out arterial insufficiency. Comparison: None. Technique: Grayscale, color, and spectral Doppler ultrasound images of the left lower extremity arter ies. Findings: There are biphasic waveforms within the patent left common femoral artery, peak systolic velocity 124 cm/s. The left deep femoral and superficial femoral arteries are patent without evidence of stenosis . Mild femoral artery atherosclerosis is noted. The popliteal artery, posterior tibial and peroneal a rteries are patent with biphasic waveforms. Triphasic waveforms are visualized in the dorsalis pedis and anterior tibial artery at the ankle. No visual evidence of significant stenosis is identified. No increased velocities to suggest signific ant stenosis. Impression: 1. No significant arterial stenosis in the left lower extremity. Electronically signed by: Mic Lewis MD (08/12/2021 10:30 AM) [id number]
--- NOTE | 2021-08-12 10:46 | PHYS DOC ---
Past Medical History Past Medical History: Diabetes-Type II, High Cholesterol, Hypertension, H ypothyroid, Other Additional Past Medical Histor: bradycardia during stress test. Past Surgical History: Cholecystectomy, Coronary Bypass Surgery, Pacemaker Smoking Status: Former Smoker Alcohol Use: Occasionally Drug Use: None General Adult EDM: Chief Complaint: LOWER EXT PAIN HPI: HPI: Patient is a 81 year old male presents with left lower extremity pain. Patient states that started approximately 5 days ago. Patient states that he has been t reated for sciatica. Pain is worse with weightbearing states he feels a gets burning down his toes. Patient has been given muscle relaxers and pain medication steroids with no relief. Review of Systems: Review of Systems: Constitutional: Denies fever or chills. [] Eyes: Denies change in visual acuity. [] HENT: Denies nasal congestion or sore throat. [] Respiratory: Denies cough or shortness of breath. [] Cardiovascular: Denies chest pain or edema. [] GI: Denies abdominal pain, nausea, vomiting, bloody stools or diarrhea. [] : Denies dysuria. [] Musculoskeletal: Denies back pain or joint pain. [] Integument: Denies rash. [] Neurologic: Denies headache, focal weakness or sensory changes. [] Endocrine: Denies polyuria or polydipsia. [] Lymphatic: Denies swollen glands. [] Psychiatric: Denies depression or anxiety. [] Heart Score: C/O Chest Pain: No Risk Factors: Risk Factors: DM, Current or recent (<one month) smoker, HTN, HLP, family history of CAD, obesity. Risk Scores: Score 0 - 3: 2.5% MACE over next 6 weeks - Discharge Home Score 4 - 6: 20.3% MACE over next 6 weeks - Admit for Clinical Observation Score 7 - 10: 72.7% MACE over next 6 weeks - Early Invasive Strategies Current Medications: Current Medications Medications (Trade) Dose Ordered Sig/Jayce Start Time Stop Time Status Last Admin Dose Admin Lidocaine (Lidoderm) 1 patch 1X ONCE 08/12/21 10:00 08/12/21 10:01 DC 08/12/21 10:00 1 PATCH Lorazepam (Ativan Inj) 1 mg 1X ONCE 08/12/21 10:00 08/12/21 10:01 DC Morphine Sulfate (Morphine Sulfate) 4 mg 1X ONCE 08/12/21 10:00 08/12/21 10:01 DC 08/12/21 10:05 4 MG Allergies: Allergies: Allergies Coded Allergies Type Severity Reaction Last Updated Verified No Known Drug Allergies 01/03/20 No Physical Exam: PE: Constitutional: Well developed, well nourished, no acute distress, non-toxic bhargav earance. Uncomfortable HENT: Normocephalic, atraumatic, bilateral external ears normal, oropharynx moist, no oral exudates, nose normal. Eyes: PERRLA, EOMI, conjunctiva normal, no discharge. Neck: Normal range of motion, no tenderness, supple, no stridor. Cardiovascular:Heart rate regular rhythm, no murmur Lungs & Thorax: Bilateral breath sounds clear to auscultation Abdomen: Bowel sounds normal, soft, no tenderness, no masses, no pulsatile masses. Skin: Warm, dry, no erythema, vesicular rash Back: No tenderness, no CVA tenderness. Extremities: Patient has a vesicular eruptions along the left leg and lower back consistent with herpes zoster. Pain in the lower back and left leg. No tenderness, no cyanosis, no clubbing, ROM intact, no edema. Neurologic: Alert and oriented X 3, normal motor function, normal sensory function, no focal deficits noted. Psychologic: Affect normal, judgement normal, mood normal. Current Patient Data: Vital Signs: Vital Signs Date Time Temp Pulse Resp B/P (MAP) Pulse Ox O2 Delivery O2 Flow Rate FiO2 08/12/21 10:05 16 95 Room Air 08/12/21 09:30 98.4 69 144/68 (93) 98.4 EKG: EKG: [] Radiology/Procedures: Radiology/Procedures: [] Course & Med Decision Making: Course & Med Decision Making Pertinent Labs and Imaging studies reviewed. 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 Ailynon Disclaimer: Lane Disclaimer: This electronic medical record was generated, in whole or in part, using a voice recognition dictation system. Departure Departure Impression: Primary Impression: Shingles Disposition: HOME / SELF CARE / HOMELESS Condition: STABLE Patient Instructions: Shingles, Bwws-ih-Hpyq Scripts Tramadol Hcl (TRAMADOL HCL) 50 Mg Tablet 50 MG PO Q6HRS PRN for PAIN for 5 Days, #20 TAB Prov: ERON ROMANO DO 08/12/21 Valacyclovir Hcl (VALTREX) 1,000 Mg Tablet 1 TAB PO BID, #20 TAB Prov: ERON ROMANO DO 08/12/21 ERON ROMANO DO Aug 12, 2021 10:46
[2021-08-12 11:10] VITALS: BP 163/74
== END 2021-08-12 11:10 | disposition home or self-care (01) ==
LOC: ER 09:17
DX: B02.9 Zoster without complications (principal); M79.605 Pain in left leg; E11.9 Type 2 diabetes mellitus without complications; E78.00 Pure hypercholesterolemia, unspecified; I10 Essential (primary) hypertension; E03.9 Hypothyroidism, unspecified; Z87.891 Personal history of nicotine dependence; Z95.1 Presence of aortocoronary bypass graft; Z95.0 Presence of cardiac pacemaker; Z90.49 Acquired absence of other specified parts of digestive tract
CPT/HCPCS: 93926; 96372; 99284; J2270